=== PATIENT | male | born 1965 | race Caucasian/White ===

== ENCOUNTER 2020-06-12 16:36 | Inpatient (IN) | payer OTHER ==
[~2020-06-12] VITALS: Ht 180.3 cm; Wt 140.6 kg
--- NOTE | 2020-06-12 16:51 | NUR ---
PTE REFERIDO POR DR ARAUJO PTE REFIERE DOLOR ABDOMINAL SE ELIDA S/V YS EUBICA EN AREA DE OBSERVACION
[2020-06-12] MEDS ORDERED: COZAAR25 MG (16:56)
[2020-06-12] MEDS ORDERED: METFORMIN (16:56)
[2020-06-12] MEDS ORDERED: NORVASC5 MG (16:57)
[2020-06-14] MEDS ORDERED: FORTAMET1000 MG (08:17)
[2020-06-17] MEDS ORDERED: INTESTINEX680 M1 PO (16:53)
[2020-06-17] MEDS ORDERED: AMOX1TAB5 PO (16:53)
[2020-06-17] MEDS ORDERED: PANTOPRAZOLE SO40 MG PO (16:54)
[2020-06-17] MEDS ORDERED: DICY20TA PO (16:54)
== END 2020-06-17 19:37 | disposition home or self-care (01) | DRG 395 ==
LOC: ER 16:36 → SURH 17:09
PROVIDERS: ADMIT Surgery; ATTEND Surgery
PROC: BW21Y0Z Computerized Tomography (CT Scan) of Abdomen and Pelvis using Other Contrast, Unenhanced and Enhanced (ICD-10-PCS; principal; 2020-06-17)
DX: K35.80 Unspecified acute appendicitis (principal); I10 Essential (primary) hypertension; E66.01 Morbid (severe) obesity due to excess calories; E11.21 Type 2 diabetes mellitus with diabetic nephropathy; N28.9 Disorder of kidney and ureter, unspecified; Z20.828 Contact with and (suspected) exposure to other viral communicable diseases; Z79.4 Long term (current) use of insulin

== ENCOUNTER 2024-10-08 14:36 | Emergency (ER) | payer OTHER ==
[~2024-10-08] VITALS: Ht 180.3 cm; Wt 142.9 kg
[~2024-10-08 14:36] MED LIST: AMOX1TAB5 PO; COZAAR25 MG; DICY20TA PO; FORTAMET1000 MG; INTESTINEX680 M1 PO; METFORMIN; NORVASC5 MG; PANTOPRAZOLE SO40 MG PO
[2024-10-08] MEDS ORDERED: IRBESARTAN75 MG (15:30)
[2024-10-08] MEDS ORDERED: AMLODIPINE-OLM1 EAC2 (15:30)
[2024-10-08] MEDS ORDERED: METRONIDAZOLE/SODIUM CHLORIDE 500 MG/100 ML PIGGYBACK IV STA (15:59)
[2024-10-08] MEDS ORDERED: CIPROFLOXACIN IN 5 % DEXTROSE 400 MG/200 ML PIGGYBAG IV STA (15:59)
[2024-10-08] MEDS ORDERED: 0.9 % SODIUM CHLORIDE 1,000 ML IV STA (16:04)
[2024-10-08] MEDS ORDERED: MEPERIDINE HCL/PF 50 MG/ML VIAL IM STA ×2 (16:05→16:32)
[2024-10-08 16:35] LABS: HEMATOCRIT 41.6 % (39.0-48.0); HEMOGLOBIN 14.2 g/dL (13-16.00); MEAN CORPUSCULAR HEMOGLOBIN 30.8 pg (27.00-32.0); MEAN CORPUSCULAR HGB CONC 34.2 g/dl (32.0-36.0); PLATELET COUNT 140 K/uL (150-450); RED BLOOD COUNT 4.62 M/uL (4.00-6.00); RED CELL DISTRIBUTION WIDTH 13.7 % (11.5-14.5)
[2024-10-08 17:05] LABS: ALBUMIN 3.7 gm/dL (3.4-5.0); BILIRUBIN TOTAL 0.82 mg/dL (0.3-1.2); BILIRUBIN,CONJUGATED 0.21 mg/dL (0.0-0.2); BILIRUBIN,UNCONJUGATED 0.61 mg/dL (0.0-0.6); CALCIUM 9.3 mg/dL (8.5-10.1); CREATININE SERUM 1.26 mg/dL (0.70-1.30); GFR 58.38; POTASSIUM 3.82 mEq/L (3.5-5.1); TOTAL PROTEIN 7.4 gm/dL (6.4-8.2)
[2024-10-08 17:45] LABS: URINE APPEARANCE Clear; URINE BILIRRUBIN Negative (NEGATIVE); URINE BLOOD Negative; URINE COLOR Yellow; URINE GLUCOSE Negative (NEGATIVE); URINE KETONE Negative (NEGATIVE); URINE LEUKOCYTE Negative; URINE NITRATE Negative; URINE PROTEIN Negative (NEGATIVE); URINE UROBILINOGEN 0.2 E.U./dl
[2024-10-08 17:56] LABS: URINE BACTERIA 3.7 uL (0.0-1933); URINE EPITHELIAL CELLS 0.1 uL (0.0-38.8); URINE WBC 0.6 uL (0.0-23.2)
== END 2024-10-08 20:43 | disposition home or self-care (01) ==
LOC: ER 14:38
PROVIDERS: General Practice
DX: K57.92 Diverticulitis of intestine, part unspecified, without perforation or abscess without bleeding (principal); R10.9 Unspecified abdominal pain; I10 Essential (primary) hypertension